=== PATIENT | male | born 1995 | race Caucasian/White ===

== ENCOUNTER 2016-09-01 10:56 | Emergency (ER) | payer OTHER ==
[2016-09-01 11:00] VITALS: BP 131/83; TEMP 99.5; BMI 19.6
--- NOTE | 2016-09-01 11:38 | ED.PDOC ---
General ED Provider: Dr. ISAURA ZHONG Chief Complaint: Hand Pain/Injury Stated Complaint: hand wrist injury left Time Seen by Physician: 11:00 (blunt force trauma with brass knockel) Mode of Arrival: Walk-In Information Source: Patient Exam Limitations: No limitations Nursing and Triage Documentation Reviewed and Agree: Yes (no other injury) Musculoskeletal Complaint Exam - Hand/Wrist Complaint/Exam Location of Pain: Reports: Left, Hand, Wrist Mechanism of Injury: Reports: Trauma (blunt force ) Onset/Duration: 1 day Symptoms Are: Still present Initial Severity: Mild Current Severity: Mild Location: Reports: Diffuse (but no pain over snuff box) Character: Reports: Dull, Aching Alleviating: Reports: Rest Aggravating: Reports: Movement Associated Signs and Symptoms: Denies: Swelling, Redness, Bruising, Fever, Weakness, Numbness, Tingling Dominant Hand: Right Related Surgical History: Reports: None Tenderness: Present: Radius, Ulna. Absent: Snuff box Differential Diagnoses: Sprain, Strain Review of Systems - Review Of Systems Constitutional: Reports: No symptoms Eyes: Reports: No symptoms Ears, Nose, Mouth, Throat: Reports: No symptoms Respiratory: Reports: No symptoms Cardiac: Reports: No symptoms GI: Reports: No symptoms : Reports: No symptoms Musculoskeletal: Reports: Joint pain (left wrist and hand injury limited to this area ) Skin: Reports: No symptoms Neurological: Reports: No symptoms Endocrine: Reports: No symptoms Hematologic/Lymphatic: Reports: No symptoms All Other Systems: Reviewed and Negative Past Medical History - Past Medical History Endocrine: Reports: None Cardiovascular: Reports: None Respiratory: Reports: None Hematological: Reports: None Gastrointestinal: Reports: None Genitourinary: Reports: None Neuro/Psych: Reports: Anxiety, Depression, Bipolar Disorder Musculoskeletal: Reports: None Cancer: Reports: None - Surgical History General Surgical History: Reports: Other - Family History Family History: Reports: Unknown - Social History Smoking Status: Current every day smoker, Heavy tobacco smoker Hx Substance Use: Yes Alcohol Screening: Occasionally Physical Exam - Physical Exam Appearance: Well-appearing, No pain distress, Well-nourished Eyes: KIM, EOMI, Conjunctiva clear ENT: Ears normal, Nose normal, Oropharynx normal Respiratory: Airway patent, Breath sounds clear, Breath sounds equal, Respirations nonlabored Cardiovascular: RRR, Pulses normal, No rub, No murmur GI/: Soft, Nontender, No masses, Bowel sounds normal, No Organomegaly Musculoskeletal: Normal strength, No edema, No calf tenderness, Limited ROM ( 5th metacarpel bone ) Skin: Warm, Dry, Normal color Neurological: Sensation intact, Motor intact, Reflexes intact, Cranial nerves intact, Alert, Oriented Psychiatric: Affect appropriate, Mood appropriate Interpretation - Radiology Interpretation Radiology Interpretation By: Radiologist Radiology Results: Positive (boxers fracture) Critical Care Note - Critical Care Note Total Time (mins): 0 Course - Course Orders, Labs, Meds: Orders Category Date Time Status HAND, LEFT 3 VIEWS Stat RADS 09/01/16 10:59 Completed WRIST, LEFT 3 VIEWS Stat RADS 09/01/16 10:59 Completed Vital Signs: Temp Pulse Resp BP Pulse Ox 09/01/16 10:57 99.5 F 85 20 131/83 100 Departure - Departure Time of Disposition: 11:39 Disposition: HOME SELF-CARE Discharge Problem: Boxers fracture Qualifiers: Encounter type: initial encounter Fracture type: closed Qualifier Code: ( S62.309A) Unspecified fracture of unspecified metacarpal bone, initial encounter for closed fracture Instructions: Boxer Fracture (ED) Condition: Good Pt referred to PMD for follow-up: No Additional Instructions: Please call your Family Physician as soon as possible to schedule a follow-up appointment. Allergies/Adverse Reactions: Allergies amphetamine aspartate [From Adderall] Adverse Reaction (Verified 09/01/16 11:03) amphetamine sulfate [From Adderall] Adverse Reaction (Verified 09/01/16 11:03) dextroamphetamine saccharate [From Adderall] Adverse Reaction (Verified 11:03) dextroamphetamine sulfate [From Adderall] Adverse Reaction (Verified 09/01/16 11 :03) Home Medications: Ambulatory Orders 1 [No Reported Medications] 09/01/16 Disposition Discussed With: Patient
--- NOTE | 2016-09-01 11:44 | DI ---
Exam: Three x-rays of the left wrist. Comparison: Hand x-rays performed on the same day. Reason for exam: Pain. FINDINGS: There is a displaced fracture of the left fifth metacarpal (boxer's fracture). No other fracture or dislocation is seen. The joint spaces are well maintained. No unexplained calcific sof t tissue densities or radiopaque retained foreign bodies. The joint spaces of the wrist are unremar kable. Impression: Displaced fracture of the left fifth metacarpal (boxer's fracture). Imaging interpretation was faxed at 1140 hours on 09/01/2016.
--- NOTE | 2016-09-01 11:44 | DI ---
Three x-rays of the left hand. Comparison: Wrist x-rays performed on the same day. Reason for exam: Pain. FINDINGS: There is a displaced fracture of the left fifth midshaft metacarpal (boxer's fracture). No other fr acture or dislocation is seen. There is a moderate amount of soft tissue swelling seen adjacent to the fracture site. Impression: A minimally displaced fracture of the left fifth metacarpal (boxer's fracture). Report faxed at [phone] hours on 09/01/2016.
== END 2016-09-01 12:05 | disposition home or self-care (01) ==
LOC: ED 10:56
DX: S62.307A Unspecified fracture of fifth metacarpal bone, left hand, initial encounter for closed fracture (principal); W22.8XXA Striking against or struck by other objects, initial encounter; F17.210 Nicotine dependence, cigarettes, uncomplicated
CPT/HCPCS: 99283

== ENCOUNTER 2017-12-28 15:12 | Emergency (ER) ==
[2017-12-28 15:15] VITALS: BP 125/85; TEMP 97.7; BMI 18.2
--- NOTE | 2017-12-28 15:18 | ED.PDOC ---
General ED Provider: Dr. MARGIE LAGUERRE Chief Complaint: Shoulder Pain/Injury Stated Complaint: Rt Shoulder pain. Onset after carrying a bundle of shingles. Past hx of previous injury AND xrays were negative. State was carrying with his lt side but rt side began to hurt. Time Seen by Physician: 15:30 Mode of Arrival: Walk-In Information Source: Patient Exam Limitations: No limitations Nursing and Triage Documentation Reviewed and Agree: Yes Does patient meet sepsis criteria?: No System Inflammatory Response Syndrome: Not Applicable Sepsis Protocol: For patient's 13 years and over: Temp is 96.8 and below OR 101 and greater Pulse >90 BPM Resp >20/minute Acutely Altered Mental Status Are patient's symptoms suggestive of a new infection, such as: -Pneumonia -Skin, Soft Tissue -Endocarditis -UTI -Bone, Joint Infection -Implantable Device -Acute Abdominal Infection -Wound Infection -Meningitis -Blood Stream Catheter Infection -Unknown Musculoskeletal Complaint Exam - Shoulder Pain Complaint/Exam Mechanism of Injury: Reports: No known trauma Onset/Duration: Several hours Symptoms Are: Still present Timing: Constant Initial Severity: Moderate Current Severity: Moderate Location: Reports: Discrete Character: Reports: Sharp, Dull, Aching Alleviating: Reports: Rest Aggravating: Reports: Movement, Lifting Associated Signs and Symptoms: Reports: Weakness. Denies: Swelling, Redness, Bruising, Fever, Numbness, Tingling Related History: Reports: Similar episode Non-Orthopedic Risk Factors: Reports: None DVT Risk Factors: Reports: None Septic Arthritis Risk Factors: Reports: None Related Surgical History: Reports: None Shoulder Findings: Present: Abnormal contour (prominent acromioclavicual articulation ) Tenderness: Present: AC joint Limited Range of Motion: Present: External rotation Shoulder Picture: 1 - AC joint Differential Diagnoses: Contusion, Strain Review of Systems - Review Of Systems Constitutional: Reports: No symptoms Eyes: Reports: No symptoms Ears, Nose, Mouth, Throat: Reports: No symptoms Respiratory: Reports: No symptoms Cardiac: Reports: No symptoms GI: Reports: No symptoms : Reports: No symptoms Musculoskeletal: Reports: Joint pain Skin: Reports: No symptoms Neurological: Reports: No symptoms Endocrine: Reports: No symptoms Hematologic/Lymphatic: Reports: No symptoms All Other Systems: Reviewed and Negative Past Medical History - Past Medical History Endocrine: Reports: None Cardiovascular: Reports: None Respiratory: Reports: None Hematological: Reports: None Gastrointestinal: Reports: None Genitourinary: Reports: None Neuro/Psych: Reports: Anxiety, Depression, Bipolar Disorder Musculoskeletal: Reports: None Cancer: Reports: None - Surgical History General Surgical History: Reports: Other - Family History Family History: Reports: Unknown - Social History Smoking Status: Current every day smoker, Heavy tobacco smoker Hx Substance Use: Yes Alcohol Screening: Occasionally Physical Exam - Physical Exam Appearance: Well-appearing, No pain distress, Well-nourished, Thin Pain Distress: Mild Eyes: KIM, EOMI, Conjunctiva clear ENT: Ears normal, Nose normal, Oropharynx normal Respiratory: Airway patent, Breath sounds clear, Breath sounds equal, Respirations nonlabored Cardiovascular: RRR, Pulses normal, No rub, No murmur GI/: Soft, Nontender, No masses, Bowel sounds normal, No Organomegaly Musculoskeletal: Normal strength, ROM intact, No edema, No calf tenderness Skin: Warm, Dry, Normal color Neurological: Sensation intact, Motor intact, Reflexes intact, Cranial nerves intact, Alert, Oriented Psychiatric: Affect appropriate, Mood appropriate Interpretation - Radiology Interpretation Radiology Interpretation By: Radiologist Radiology Results: No acute changes Xray Comments: ac joint subluxation on Rt Re-Evaluation - Re-Evaluation Time of Re-Evaluation: 17:15 Status: Unchanged Vital Signs Stable: Yes Pain Level: 5//10 Additional Comments: Reviewed film/ definite separation of RT AC joint/ordered bilat AC series Critical Care Note - Critical Care Note Total Time (mins): 0 Course - Course Orders, Labs, Meds: Orders Category Date Time Status AC JOINTS, BILATERAL Stat RADS 12/28/17 17:26 Completed SHOULDER, RIGHT MIN 2V Stat RADS 12/28/17 15:31 Completed Vital Signs: Temp Pulse Resp BP Pulse Ox 12/28/17 15:13 97.7 F 78 20 125/85 99 Departure - Departure Time of Disposition: 18:00 Disposition: HOME SELF-CARE Discharge Problem: Acromioclavicular joint separation, Pain in right acromioclavicular joint Instructions: Acromioclavicular Separation (ED), Arthralgia (ED) Condition: Fair Pt referred to PMD for follow-up: Yes (See Prim care physician for follow up care) IPMP verified?: No Additional Instructions: Apply ice to the affected area for 20 minutes 4 times daily Avoid strenuous activity Remain off work for 2 days See PCP and get referral to clin application specialist for additional evaluation Allergies/Adverse Reactions: Allergies amphetamine aspartate [From Adderall] Adverse Reaction (Verified 12/28/17 15:15) amphetamine sulfate [From Adderall] Adverse Reaction (Verified 12/28/17 15:15) dextroamphetamine saccharate [From Adderall] Adverse Reaction (Verified 15:15) dextroamphetamine sulfate [From Adderall] Adverse Reaction (Verified 12/28/17 15 :15) Home Medications: Ambulatory Orders Ketorolac Tromethamine [Toradol] 10 mg PO Q6H 5 Days #20 tablet 12/28/17 Disposition Discussed With: Patient
--- NOTE | 2017-12-28 16:10 | DI ---
EXAM: Three views of the right shoulder HISTORY: Pain in the right shoulder. COMPARISON: Right shoulder x-rays 01/04/2015 FINDINGS: There is no cortical irregularity or displaced fracture of the right shoulder. Glenohumera l joint is normal. The acromioclavicular joint is unchanged. Soft tissues are unremarkable. The ad jacent osseous structures are normal. IMPRESSION: No acute abnormality of the right shoulder. There is no displaced fracture or dislocati on.
--- NOTE | 2017-12-28 17:54 | DI ---
EXAM: Four views of the bilateral acromioclavicular joints. History: Pain of the right AC joint. Findings: No acute fracture. There is mild superior subluxation of the distal right clavicle on the acromion. No abnormal calcifications or radiopaque foreign bodies. There is mild soft tissue swell ing over the right AC joint. Impression: Probable mild right AC joint separation. No acute fracture.
[2017-12-28] MEDS ORDERED: TORADOL PO STA (18:05)
== END 2017-12-28 18:15 | disposition home or self-care (01) ==
LOC: ED 15:12
DX: S43.101A Unspecified dislocation of right acromioclavicular joint, initial encounter (principal); X58.XXXA Exposure to other specified factors, initial encounter; F17.210 Nicotine dependence, cigarettes, uncomplicated
CPT/HCPCS: 99283